=== PATIENT | female | born 1940 | race Caucasian/White ===

== ENCOUNTER → 2020-03-23 | Outpatient (CLI) | payer OTHER | LOC: SJCVCIMAG 10:53 | PROVIDERS: ATTEND Internal Medicine | DX: I37.1 Nonrheumatic pulmonary valve insufficiency (principal) ==

== ENCOUNTER 2020-06-18 16:43 | Inpatient (IN) | payer OTHER ==
[~2020-06-18] VITALS: Ht 160 cm; Wt 79.4 kg
[2020-06-18 16:47] VITALS: BP 189/82
[2020-06-18 18:29] LABS: ABSOLUTE NEUTROPHILS 5.9 thou/uL (1.4-8.2); BASOPHILS 2.9 % (0.0-2.0); EOSINOPHILS 1.5 % (0.0-3.0); HEMOGLOBIN 14.3 gm/dL (12.0-15.0); LYMPHOCYTES 40.7 % (24.0-44.0); MCH 28.7 pg (26.0-34.0); MCHC 33.2 g/dL (28.0-37.0); MCV 86.7 fL (80.0-100.0); PLATELET COUNT 532 thou/uL (150-400); POLYS 48.9 % (36.0-66.0); RBC 4.97 mil/uL (4.20-5.00); RDW 14.3 % (10.5-14.5); WBC 12.1 thou/uL (4.0-11.0)
[2020-06-18 18:51] LABS: CALCIUM 10.2 mg/dL (8.5-10.1); CREATININE 1.3 mg/dL (0.6-1.0); POTASSIUM 3.1 mmol/L (3.5-5.1)
[2020-06-18 19:01] LABS: ALBUMIN 3.7 g/dL (3.4-5.0); TOTAL BILIRUBIN 0.6 mg/dL (0.2-1.0); TOTAL PROTEIN 7.6 g/dL (6.4-8.2); TROPONIN-I 0.09 ng/mL (<0.06)
[2020-06-18] MEDS ORDERED: HYDROCHLOROTHIA25 M1 PO (20:20)
[2020-06-18] MEDS ORDERED: LOSARTAN POTASS50 MG PO (20:21)
[2020-06-18 20:27] VITALS: BP 177/97
[2020-06-18 21:30] VITALS: BP 154/69
[2020-06-18] MEDS ORDERED: MIRALAX119 GM PO (22:34)
[2020-06-18] MEDS ORDERED: COLACE100 MG PO (22:35)
[2020-06-19] VITALS: BP 155/88
[2020-06-19 03:42] VITALS: BP 131/55
--- NOTE | 2020-06-19 05:33 | NUR ---
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
[2020-06-19 07:49] LABS: CALCIUM 10.3 mg/dL (8.5-10.1); CREATININE 1.2 mg/dL (0.6-1.0); POTASSIUM 3.2 mmol/L (3.5-5.1)
[2020-06-19 08:10] VITALS: BP 143/75
[2020-06-19 08:48] LABS: HEMATOCRIT 41.6 % (37.0-47.0); HEMOGLOBIN 14.6 gm/dL (12.0-15.0); MCH 30.3 pg (26.0-34.0); MCHC 34.9 g/dL (28.0-37.0); MCV 86.9 fL (80.0-100.0); RBC 4.79 mil/uL (4.20-5.00); RDW 13.8 % (10.5-14.5); WBC 11.3 thou/uL (4.0-11.0)
[2020-06-19 08:59] LABS: PROTIME 10.8 Seconds (9.3-11.4)
[2020-06-19 11:20] VITALS: BP 167/86
--- NOTE | 2020-06-19 12:33 | 2DMMODE ---
[facility] [place] [address] 2 D/M-MODE ECHOCARDIOGRAM Name: DIANA FARFAN DEB Room #: 219-P ADM IN M.R.#: [id number] Admission: 06/18/20 Attend Phys: Lyndon Hernandez MD Discharge: Date of : 40 Report #: [id number] THIS REPORT FOR: cc: Zoltan Suazo MD, Francisco J. MD Lammoglia, Francisco J. MD ~ APPROVED REPORT Study performed: 06/19/2020 09:23:49 EXAM: Comprehensive 2D, Doppler, and color-flow Echocardiogram Patient Location: Bedside Room #: 219 Status: on-call BSA: 1.83 HR: 68 bpm BP: 142/75 mmHg Rhythm: NSR Other Information Study Quality: Good Indications Left arm pain, elevated troponin, HTN. 2D Dimensions RVDd: 32.42 mm IVSd: 11.24 (7-11mm) LVOT Diam: 20.54 (18-24mm) LVDd: 49.65 mm PWd: 11.29 (7-11mm) Ascending Ao: 33.86 (22-36mm) LVDs: 30.35 (25-40mm) Aortic Root: 30.14 mm Volumes Left Atrial Volume (Systole) Single Plane 4CH: 47.94 mL Single Plane 2CH: 42.60 mL LA ESV Index: 26.00 mL/m2 Aortic Valve AoV Peak Jaswinder.: 1.35 m/s AO Peak Gr.: 7.32 mmHg LVOT Max P.41 mmHg LVOT Max V: 1.16 m/s SURYA Vmax: 2.85 cm2 [facility] [address] [address] 2 D/M-MODE ECHOCARDIOGRAM Name: DIANA FARFAN Room #: 219-P ADM IN M.R.#: [id number] Admission: 06/18/20 Attend Phys: Lyndon Hernandez MD Discharge: Date of : 40 Report #: [id number] Mitral Valve E/A Ratio: 0.5 MV Decel. Time: 226.43 ms MV E Max Jaswinder.: 0.53 m/s MV A Jaswinder.: 1.00 m/s MV PHT: 65.66 ms IVRT: 89.97 ms Pulmonary Valve PV Peak Jaswinder.: 1.15 m/s PV Peak Gr.: 5.33 mmHg Tricuspid Valve RAP Estimate: 5.00 mmHg Left Ventricle The left ventricle is normal size. Regional wall motion abnormalities are noted. There is normal left ventricular wall thickness. Left ventricular systolic function is moderately decreased. LVEF is 35%. Mild diastolic dysfunction is present (impaired relaxation pattern). Right Ventricle The right ventricle is normal size. The right ventricular systolic function is normal. Atria The left atrium size is normal. The right atrium size is normal. Aortic Valve The aortic valve is normal in structure. Mildly calcified. No aortic regurgitation is present. There is no aortic valvular stenosis. Mitral Valve The mitral valve is normal in structure. Trace mitral regurgitation. No evidence of mitral valve stenosis. Tricuspid Valve The tricuspid valve is normal in structure. There is no tricuspid valve regurgitation noted. Unable to assess PA pressure. Pulmonic Valve The pulmonary valve is normal in structure. Trace pulmonic regurgitation. [facility] [address] [place] [address] 2 D/M-MODE ECHOCARDIOGRAM Name: NAHEEDDIANA [facility] Room #: 219-P [facility] IN M.R.#: [id number] Admission: 06/18/20 Attend Phys: Lyndon Hernandez MD Discharge: Date of : 40 Report #: [id number] Great Vessels The aortic root is normal in size. The ascending aorta is normal in size. IVC is normal in size and collapses >50% with inspiration. Pericardium There is no pericardial effusion. <Conclusion> The left ventricle is normal size. LVEF is 35%. Regional wall motion abnormalities are noted. The aortic valve is normal in structure. Mildly calcified. The mitral valve is normal in structure. Trace mitral regurgitation. The tricuspid valve is normal in structure. There is no tricuspid valve regurgitation noted. Unable to assess PA pressure. The pulmonary valve is normal in structure. Trace pulmonic regurgitation. There is no pericardial effusion. <ELECTRONICALLY SIGNED> By: Zoltan Suazo MD 06/19/20 1232 1232 1232 Zoltan Suazo MD /INF
[2020-06-19 13:28] LABS: BE(vivo) -0.6 mmol/L (-2 to +3); HCO3 26.7 mmol/L (22.0-26.0); PCO2 55.7 mmHg (35.0-45.0); PO2 208.6 mmHg (80.0-100.0); sO2 99.3 % (92.0-98.0)
[2020-06-19 13:29] LABS: pH 7.299 (7.360-7.450)
--- NOTE | 2020-06-19 15:06 | NUR ---
ASSESSMENT CHARTED. PT ALERT AND ORIENTED. REPORT HAVING LEFT ARM PAIN RADIATING TO THE CHEST. CHEST PAIN PROTOCAL INITIATED. CRITICAL LAB RESULT CALLED IN TO DR. BOWERS. ORDERS GIVEN FOR A START CATH.
--- NOTE | 2020-06-21 07:20 | EKG ---
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
--- NOTE | 2020-06-21 07:21 | EKG ---
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 : 1940 Requested By: Sarah Ayala Order Number: [id number] MD: Edwin Quezada Measurements Intervals [place] Rate: 65 P: 39 PA: 196 QRS: -17 QRSD: 86 T: 143 QT: 462 QTc: 481 Interpretive Statements Sinus rhythm Borderline left axis deviation Borderline repolarization abnormality Compared to ECG 06/18/2020 16:52:47 ST (T wave) deviation no longer present Electronically Signed On 06-21-2020 7:21:09 CDT by Edwin Quezada [email or web address] <ELECTRONICALLY SIGNED> By: Edwin Quezada MD, FAC 06/21/20 0721 0413 0413 Edwin Quezada MD, [facility] /EPI
--- NOTE | 2020-06-21 07:23 | EKG ---
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 <ELECTRONICALLY SIGNED> By: Edwin Quezada MD, FACC 06/21/20 0723 1135 1135 Edwin Quezada MD, FAC /EPI
== END 2020-06-19 15:11 ==
LOC: ER 16:43 → EROBS 19:51 → 2N 20:50
PROVIDERS: Nurse Practitioner; Nurse Practitioner Acute Care; Physician Assistant; ADMIT Hospitalist; ATTEND Hospitalist
PROC: 4A133B1 Monitoring of Arterial Pressure, Peripheral, Percutaneous Approach (ICD-10-PCS; principal; 2020-06-19)
PROC: 04HY32Z Insertion of Monitoring Device into Lower Artery, Percutaneous Approach (ICD-10-PCS; principal; 2020-06-19)
PROC: 5A12012 Performance of Cardiac Output, Single, Manual (ICD-10-PCS; principal; 2020-06-19)
PROC: 4A133J1 Monitoring of Arterial Pulse, Peripheral, Percutaneous Approach (ICD-10-PCS; principal; 2020-06-19)
PROC: 0BH18EZ Insertion of Endotracheal Airway into Trachea, Via Natural or Artificial Opening Endoscopic (ICD-10-PCS; principal; 2020-06-19)
DX: I21.3 ST elevation (STEMI) myocardial infarction of unspecified site (principal); N17.9 Acute kidney failure, unspecified; I38 Endocarditis, valve unspecified; I31.3 Pericardial effusion (noninflammatory); I10 Essential (primary) hypertension; E87.6 Hypokalemia; I46.9 Cardiac arrest, cause unspecified; I95.9 Hypotension, unspecified; M19.90 Unspecified osteoarthritis, unspecified site; Z79.899 Other long term (current) drug therapy; Z90.710 Acquired absence of both cervix and uterus
CPT/HCPCS: 10081